=== PATIENT | female | born 1945 | race Caucasian/White ===

== ENCOUNTER 2021-02-11 02:48 | Inpatient (IN) | payer MEDICARE, OTHER ==
[~2021-02-11] VITALS: Ht 152.4 cm; Wt 77.8 kg
[2021-02-11] MEDS ORDERED: SODIUM CHLORIDE 0.9% 1,000 ML IV ONE (05:15)
[2021-02-11] MEDS ORDERED: METOCLOPRAMIDE HCL 5MG/ml INJ 2ml VIAL IV ONE (05:15)
[2021-02-11] MEDS ORDERED: ACETAMINOPHEN 500 MG TAB PO ONE (05:15)
[2021-02-11] MEDS ORDERED: diphenhdrAMINE HCL 50 MG/1 ML VL IV ONE (05:15)
[2021-02-11 05:44] LABS: Basophils # (auto) 0.1 10 ^3/uL (0-0.2); Basophils % (auto) 0.7 % (0.0-2.0); Eosinophils # (auto) 0.2 10 ^3/uL (0-0.8); Hematocrit 36.3 % (36.0-46.0); Hemoglobin 12.2 g/dL (12.2-16.2); Lymphocytes # (auto) 2.1 10 ^3/uL (0.4-5.4); Lymphocytes % (auto) 13.5 % (10.0-50.0); Mean Corpuscular Hemoglobin 32.6 pg (28.0-32.0); Mean Corpuscular Hgb Conc. 33.6 g/dL (32.0-36.0); Mean Corpuscular Volume 96.9 fL (80.0-100.0); Monocytes # (auto) 1.2 10 ^3/uL (0-1.3); Monocytes % (auto) 7.5 % (0.0-12.0); Neutrophils # (auto) 12.2 10 ^3/uL (1.6-8.6); Neutrophils % (auto) 77.3 % (37.0-80.0); Nucleated Red Blood Cells % 0.1 %; Red Blood Cells 3.75 10^6/uL (4.0-5.20); Red Cell Distribution Width 14.8 % (11.8-14.3); White Blood Cell 15.7 10^3/uL (4.4-10.8)
[2021-02-11 05:47] LABS: Albumin 1.9 g/dL (3.4-5.0); Anion Gap 7 (5-15); Blood Urea Nitrogen 21 mg/dL (7-18); Calcium 6.2 mg/dL (8.5-10.1); Carbon Dioxide 19 mmol/L (21-32); Chloride 122 mmol/L (98-107); Glucose 100 mg/dL (74-106); Magnesium 1.4 mg/dL (1.6-2.6); Sodium 148 mmol/L (136-145)
[2021-02-11 05:48] LABS: INR 1.04 (0.9-1.15)
[2021-02-11 05:53] LABS: Alanine Aminotransferase 41 U/L (13-56); Alkaline Phosphatase 81 U/L (45-117); Aspartate Aminotransferase 27 U/L (15-37); BUN/Creatinine Ratio 27.6; Bilirubin, Total 0.3 mg/dL (0.2-1.0); GFR African American 95 mL/min; GFR Non-African American 79 mL/min; Total Protein 5.2 g/dL (6.4-8.2)
[2021-02-11] MEDS ORDERED: MORPHINE SULF INJ 2 MG/ML SYRINGE 1ML IV ONE (06:15)
[2021-02-11 06:22] LABS: Potassium 2.7 mmol/L (3.5-5.1)
[2021-02-11] MEDS ORDERED: LORazepam 2MG/ML-1ML VIAL IV ONE (06:30)
[2021-02-11] MEDS ORDERED: IOHEXOL 300 MG/ML 100ML BOTTLE IJ ONE (06:35)
[2021-02-11] MEDS: POTASSIUM CHL 20MEQ/100ML 100 ML IV SCH ×2 (07:44→09:45)
[2021-02-11] MEDS ORDERED: MORPHINE SULF INJ 2 MG/ML SYRINGE 1ML IV PRN (10:30)
[2021-02-11] MEDS ORDERED: LABETALOL HCL 5 MG/ML 4ML SYRINGE IV ONE (10:30)
[2021-02-11] MEDS ORDERED: LACTATED RINGER'S 1,000 ML IV ONE (10:30)
[2021-02-11] MEDS ORDERED: ONDANSETRON HCL 4 MG/2 ML VIAL IV PRN (10:30)
[2021-02-11] MEDS ORDERED: NITROGLYCERIN 0.4 MG SL TAB SL PRN (10:30)
[2021-02-11] MEDS ORDERED: MORPHINE SULF INJ 2 MG/ML SYRINGE 1ML ONE (10:41)
[2021-02-11] MEDS: MORPHINE SULF INJ 2 MG/ML SYRINGE 1ML IV PRN (11:06)
[2021-02-11] MEDS ORDERED: CHLO25TA2 PO (11:08)
[2021-02-11] MEDS ORDERED: BUPR150T18 PO (11:08)
[2021-02-11] MEDS ORDERED: AMLO-496 PO (11:08)
[2021-02-11] MEDS ORDERED: ATEN50TA PO (11:08)
[2021-02-11] MEDS ORDERED: ALLO100T PO (11:08)
[2021-02-11] MEDS ORDERED: FAMO-12 PO (11:08)
[2021-02-11] MEDS: PANTOPRAZOLE 40 MG/10 ML VIAL INJ IV SCH ×2 (11:23→22:42)
[2021-02-11 11:49] LABS: Amylase 28 U/L (25-115); Lipase 118 U/L (73-393)
[2021-02-11] MEDS ORDERED: SUCRALFATE 1 GM/10 ML ORAL SUSP PO ONE (12:15)
[2021-02-11] MEDS: levoFLOXacin 500MG 100 ML IV SCH (12:19)
[2021-02-11] MEDS: metroNIDAZOLE 500MG/100ML 100 ML IV SCH ×2 (14:00→22:00)
[2021-02-11] MEDS: SOD CHL 0.45% WITH 20MEQ KCL 1,000 ML IV SCH ×2 (14:30→18:30)
[2021-02-11] MEDS ORDERED: ACETAMINOPHEN 325 MG TAB PO PRN (20:30)
[2021-02-11] MEDS ORDERED: HYDROcodone-ACET 5/325MG TAB PO PRN (20:30)
[2021-02-11 20:50] VITALS: BP 161/79
[2021-02-11 22:00] VITALS: BP 161/79
[2021-02-12] MEDS: SOD CHL 0.45% WITH 20MEQ KCL 1,000 ML IV SCH ×2 (02:26→04:30)
[2021-02-12] MEDS: LORazepam 2MG/ML-1ML VIAL IV PRN ×3 (04:27→23:44)
[2021-02-12 04:51] VITALS: BP 159/77
[2021-02-12] MEDS: LABETALOL HCL 5 MG/ML 4ML SYRINGE IV PRN (05:17)
[2021-02-12 05:20] LABS: Basophils # (auto) 0 10 ^3/uL (0-0.2); Basophils % (auto) 0.4 % (0.0-2.0); Eosinophils # (auto) 0.2 10 ^3/uL (0-0.8); Eosinophils % (auto) 1.7 % (0.0-7.0); Hematocrit 35.7 % (36.0-46.0); Hemoglobin 12.3 g/dL (12.2-16.2); Lymphocytes # (auto) 1.8 10 ^3/uL (0.4-5.4); Lymphocytes % (auto) 13.6 % (10.0-50.0); Mean Corpuscular Hemoglobin 33.2 pg (28.0-32.0); Mean Corpuscular Hgb Conc. 34.3 g/dL (32.0-36.0); Monocytes # (auto) 0.8 10 ^3/uL (0-1.3); Monocytes % (auto) 6.3 % (0.0-12.0); Neutrophils # (auto) 10.3 10 ^3/uL (1.6-8.6); Red Blood Cells 3.69 10^6/uL (4.0-5.20); Red Cell Distribution Width 15.2 % (11.8-14.3); White Blood Cell 13.2 10^3/uL (4.4-10.8)
[2021-02-12] MEDS: metroNIDAZOLE 500MG/100ML 100 ML IV SCH (05:35)
[2021-02-12 05:53] LABS: Albumin 2.6 g/dL (3.4-5.0); BUN/Creatinine Ratio 13.5; Bilirubin, Total 0.7 mg/dL (0.2-1.0); Calcium 8.2 mg/dL (8.5-10.1); Total Protein 6.8 g/dL (6.4-8.2)
[2021-02-12 08:10] VITALS: BP 148/63
[2021-02-12] MEDS ORDERED: SIMETHICONE 40 MG/0.6 ML ORAL DROP ONE (08:30)
[2021-02-12] MEDS ORDERED: LIDOCAINE VISCOUS 2% 15ML UD ONE (08:41)
[2021-02-12] MEDS ORDERED: diphenhdrAMINE HCL 50 MG/1 ML VL ONE (08:42)
[2021-02-12 08:58] VITALS: BP 148/63
[2021-02-12] MEDS ORDERED: ENOXAPARIN SOD 40 MG/0.4 ML SYRINGE SC SCH (10:00)
[2021-02-12] MEDS ORDERED: HYDROcodone-ACET 5/325MG TAB PO PRN (10:15)
[2021-02-12] MEDS: levoFLOXacin 500MG 100 ML IV SCH (10:40)
[2021-02-12] MEDS: PANTOPRAZOLE 40 MG/10 ML VIAL INJ IV SCH ×2 (10:40→21:50)
[2021-02-12 11:46] LABS: Urine Bacteria FEW /hpf (None Seen); Urine Blood TRACE /uL (Negative); Urine Mucus FEW (None Seen); Urine Specific Gravity 1.013 (1.001-1.035); Urine WBC 65 /hpf (0 - 5)
[2021-02-12 13:00] VITALS: BP 158/76
[2021-02-12] MEDS: fentaNYL CITRATE 100 MCG/2 ML VL ONE ×2 (14:12→14:15)
[2021-02-12] MEDS: MIDAZOLAM HCL 5 MG/ML-1ML VIAL ONE ×2 (14:12→14:15)
[2021-02-12 16:33] VITALS: BP 161/84
[2021-02-12] MEDS: SUCRALFATE 1 GM/10 ML ORAL SUSP PO SCH ×2 (18:17→21:51)
[2021-02-12] MEDS: metroNIDAZOLE 500 MG TAB PO SCH (21:51)
[2021-02-12 22:00] VITALS: BP 151/85
[2021-02-13] VITALS (7 sets, daily range): BP systolic 152–163; BP diastolic 70–82
[2021-02-13] MEDS: LABETALOL HCL 5 MG/ML 4ML SYRINGE IV PRN (04:44)
[2021-02-13] MEDS: metroNIDAZOLE 500 MG TAB PO SCH ×3 (06:06→22:19)
[2021-02-13] MEDS: SUCRALFATE 1 GM/10 ML ORAL SUSP PO SCH ×4 (06:06→22:19)
[2021-02-13 07:22] LABS: Basophils # (auto) 0 10 ^3/uL (0-0.2); Basophils % (auto) 0.3 % (0.0-2.0); Eosinophils # (auto) 0.2 10 ^3/uL (0-0.8); Eosinophils % (auto) 1.5 % (0.0-7.0); Hematocrit 34.2 % (36.0-46.0); Hemoglobin 11.6 g/dL (12.2-16.2); Lymphocytes # (auto) 1.9 10 ^3/uL (0.4-5.4); Lymphocytes % (auto) 14.9 % (10.0-50.0); Mean Corpuscular Hemoglobin 33.2 pg (28.0-32.0); Mean Corpuscular Hgb Conc. 33.8 g/dL (32.0-36.0); Mean Corpuscular Volume 98.2 fL (80.0-100.0); Monocytes # (auto) 0.9 10 ^3/uL (0-1.3); Monocytes % (auto) 7.2 % (0.0-12.0); Neutrophils # (auto) 9.8 10 ^3/uL (1.6-8.6); Neutrophils % (auto) 76.1 % (37.0-80.0); Red Blood Cells 3.49 10^6/uL (4.0-5.20); White Blood Cell 12.9 10^3/uL (4.4-10.8)
[2021-02-13 07:29] LABS: BUN/Creatinine Ratio 9.2; Calcium 8.4 mg/dL (8.5-10.1); Potassium 3.3 mmol/L (3.5-5.1)
[2021-02-13] MEDS ORDERED: LABETALOL HCL 5 MG/ML 4ML SYRINGE IV PRN (10:00)
[2021-02-13] MEDS: FLORASTOR (S. BOULARDII) 250 MG CAP PO SCH (10:55)
[2021-02-13] MEDS: PANTOPRAZOLE 40 MG/10 ML VIAL INJ IV SCH ×2 (10:55→22:19)
[2021-02-13] MEDS: SOD CHL 0.9%/ KCL 20MEQ 1,000 ML IV SCH (11:39)
[2021-02-14] MEDS: MORPHINE SULF INJ 2 MG/ML SYRINGE 1ML IV PRN (00:45)
[2021-02-14] MEDS: SOD CHL 0.9%/ KCL 20MEQ 1,000 ML IV SCH ×2 (00:46→12:40)
[2021-02-14 05:00] VITALS: BP 173/74
[2021-02-14 05:31] LABS: Basophils # (auto) 0 10 ^3/uL (0-0.2); Basophils % (auto) 0.5 % (0.0-2.0); Eosinophils # (auto) 0.3 10 ^3/uL (0-0.8); Eosinophils % (auto) 2.8 % (0.0-7.0); Hematocrit 34.6 % (36.0-46.0); Hemoglobin 11.6 g/dL (12.2-16.2); Lymphocytes # (auto) 2.3 10 ^3/uL (0.4-5.4); Mean Corpuscular Hemoglobin 32.6 pg (28.0-32.0); Mean Corpuscular Hgb Conc. 33.5 g/dL (32.0-36.0); Mean Corpuscular Volume 97.2 fL (80.0-100.0); Monocytes # (auto) 0.9 10 ^3/uL (0-1.3); Monocytes % (auto) 8.9 % (0.0-12.0); Neutrophils # (auto) 6.5 10 ^3/uL (1.6-8.6); Neutrophils % (auto) 64.8 % (37.0-80.0); Nucleated Red Blood Cells % 0.3 %; Red Blood Cells 3.57 10^6/uL (4.0-5.20); Red Cell Distribution Width 15.2 % (11.8-14.3)
[2021-02-14 05:59] LABS: BUN/Creatinine Ratio 8.5; Calcium 8.2 mg/dL (8.5-10.1); Potassium 3.9 mmol/L (3.5-5.1)
[2021-02-14] MEDS: SUCRALFATE 1 GM/10 ML ORAL SUSP PO SCH ×2 (06:08→11:27)
[2021-02-14] MEDS: metroNIDAZOLE 500 MG TAB PO SCH (06:08)
[2021-02-14 08:00] VITALS: BP 158/87
[2021-02-14 08:56] VITALS: BP 158/87
[2021-02-14] MEDS: PANTOPRAZOLE 40 MG/10 ML VIAL INJ IV SCH (10:06)
[2021-02-14] MEDS: FLORASTOR (S. BOULARDII) 250 MG CAP PO SCH (10:06)
[2021-02-14 12:33] VITALS: BP 162/78
== END 2021-02-14 14:15 | disposition home or self-care (01) | DRG 872 ==
LOC: EDBD 02:48 → ER 02:48 → TELE 10:23 → TELE-CENTR 20:50
PROVIDERS: ADMIT Nurse Practitioner Acute Care; ATTEND Internal Medicine
PROC: 0DB68ZX Excision of Stomach, Via Natural or Artificial Opening Endoscopic, Diagnostic (ICD-10-PCS; 2021-02-12)
PROC: 0DB98ZX Excision of Duodenum, Via Natural or Artificial Opening Endoscopic, Diagnostic (ICD-10-PCS; principal; 2021-02-12 14:05)
DX: A41.9 Sepsis, unspecified organism (principal); A04.72 Enterocolitis due to Clostridium difficile, not specified as recurrent; E44.0 Moderate protein-calorie malnutrition; E86.0 Dehydration; E87.6 Hypokalemia; I10 Essential (primary) hypertension; E11.9 Type 2 diabetes mellitus without complications; E78.5 Hyperlipidemia, unspecified; K25.9 Gastric ulcer, unspecified as acute or chronic, without hemorrhage or perforation; K29.80 Duodenitis without bleeding; K29.90 Gastroduodenitis, unspecified, without bleeding; K57.30 Diverticulosis of large intestine without perforation or abscess without bleeding; M10.9 Gout, unspecified; Z20.822 Contact with and (suspected) exposure to COVID-19; K21.9 Gastro-esophageal reflux disease without esophagitis; Z88.0 Allergy status to penicillin; Z68.33 Body mass index [BMI] 33.0-33.9, adult; Z90.49 Acquired absence of other specified parts of digestive tract
CPT/HCPCS: 36415; 71045; 74177; 76705; 80048; 80053; 81001; 82150; 82728; 83605; 83615; 83690; 83735; 83880; 84484; 85025; 85610; 87040; 87045; 87426; 87427; 87493; 93005; 93306; 96365; 96366; 96368; 96375; 96376; 97163; C9113; G0378; J1956; J2250; J3480; J3490

== ENCOUNTER 2021-08-15 21:22 | Inpatient (IN) | payer MEDICARE ==
[~2021-08-15] VITALS: Ht 154.9 cm; Wt 77.2 kg
[~2021-08-15 21:22] MED LIST: ALLO100T PO; AMLO-496 PO; ATEN50TA PO; BUPR150T18 PO; CHLO25TA2 PO; FAMO-12 PO
[2021-08-15] MEDS ORDERED: ONDANSETRON HCL 4 MG/2 ML VIAL IV ONE (21:45)
[2021-08-15] MEDS ORDERED: SODIUM CHLORIDE 0.9% 1,000 ML IV ONE (22:00)
[2021-08-15] MEDS ORDERED: fentaNYL CITRATE 100 MCG/2 ML VL IV ONE (22:15)
[2021-08-15 23:26] LABS: Eosinophils # (auto) 0 10 ^3/uL (0-0.8); Monocytes # (auto) 0.5 10 ^3/uL (0-1.3); Neutrophils # (auto) 7.8 10 ^3/uL (1.6-8.6)
[2021-08-15 23:32] LABS: Basophils # (auto) 0 10 ^3/uL (0-0.2); Basophils % (auto) 0.4 % (0.0-2.0); Eosinophils % (auto) 0.3 % (0.0-7.0); Hematocrit 38.8 % (36.0-46.0); Hemoglobin 13.2 g/dL (12.2-16.2); Lymphocytes # (auto) 0.7 10 ^3/uL (0.4-5.4); Lymphocytes % (auto) 8.2 % (10.0-50.0); Monocytes % (auto) 5.2 % (0.0-12.0); Neutrophils % (auto) 85.9 % (37.0-80.0); Red Blood Cells 3.99 10^6/uL (4.0-5.20); White Blood Cell 9.1 10^3/uL (4.4-10.8)
[2021-08-15 23:40] LABS: INR 1.08 (0.9-1.15); Partial Thromboplastin Time 29.7 sec (23.6-33.0)
[2021-08-15 23:48] LABS: Albumin 3.4 g/dL (3.4-5.0); Calcium 9.1 mg/dL (8.5-10.1); Potassium 4.2 mmol/L (3.5-5.1)
[2021-08-15 23:55] LABS: BUN/Creatinine Ratio 16.8; Bilirubin, Total 0.3 mg/dL (0.2-1.0); Total Protein 7.7 g/dL (6.4-8.2)
[2021-08-16] MEDS ORDERED: fentaNYL CITRATE 100 MCG/2 ML VL IV ONE (01:15)
[2021-08-16] MEDS ORDERED: ONDANSETRON HCL 4 MG/2 ML VIAL IV ONE (01:15)
[2021-08-16 01:38] LABS: Urine Bacteria FEW /hpf (None Seen); Urine Blood Negative /uL (Negative); Urine Mucus FEW (None Seen); Urine Specific Gravity 1.009 (1.001-1.035); Urine WBC 9 /hpf (0 - 5)
[2021-08-16] MEDS ORDERED: HYDROcodone-ACET 5/325MG TAB PO PRN (03:00)
[2021-08-16] MEDS ORDERED: DEXTROSE (50%) 50ML SYRG IV PRN (03:00)
[2021-08-16] MEDS ORDERED: ACETAMINOPHEN 325 MG TAB PO PRN (03:00)
[2021-08-16] MEDS ORDERED: SODIUM CHLORIDE 0.9% 1,000 ML IV SCH (03:00)
[2021-08-16] MEDS ORDERED: ASPirin 325 MG TAB PO ONE (03:15)
[2021-08-16] MEDS ORDERED: levoFLOXacin 500MG 100 ML IV ONE (04:00)
[2021-08-16] MEDS ORDERED: MORPHINE SULFATE INJECTION 2 MG/ML SYRG IV PRN (04:15)
[2021-08-16] MEDS: MORPHINE SULFATE 4 MG/ML SYR/VIAL IV PRN (04:25)
[2021-08-16] MEDS ORDERED: diphenhdrAMINE HCL 50 MG/1 ML VL IV ONE (04:45)
[2021-08-16] MEDS: ACCU-CHEK COMFORT CURVE STRIP VI SCH ×3 (06:12→18:00)
[2021-08-16] MEDS: InsuLIN REG 1unit/0.01ml Soln (100units/ml) SC SCH ×3 (06:29→18:00)
[2021-08-16 06:43] LABS: Basophils # (auto) 0.1 10 ^3/uL (0-0.2); Basophils % (auto) 0.6 % (0.0-2.0); Eosinophils # (auto) 0 10 ^3/uL (0-0.8); Eosinophils % (auto) 0.3 % (0.0-7.0); Hematocrit 36.6 % (36.0-46.0); Hemoglobin 12.1 g/dL (12.2-16.2); Lymphocytes # (auto) 1.5 10 ^3/uL (0.4-5.4); Lymphocytes % (auto) 15.5 % (10.0-50.0); Mean Corpuscular Hgb Conc. 33.1 g/dL (32.0-36.0); Mean Corpuscular Volume 96.6 fL (80.0-100.0); Monocytes # (auto) 0.7 10 ^3/uL (0-1.3); Neutrophils # (auto) 7.2 10 ^3/uL (1.6-8.6); Neutrophils % (auto) 76.6 % (37.0-80.0); Red Blood Cells 3.79 10^6/uL (4.0-5.20); Red Cell Distribution Width 13.9 % (11.8-14.3); White Blood Cell 9.4 10^3/uL (4.4-10.8)
[2021-08-16 06:57] LABS: Albumin 3.1 g/dL (3.4-5.0); Calcium 8.9 mg/dL (8.5-10.1); Potassium 4.1 mmol/L (3.5-5.1)
[2021-08-16 07:08] LABS: BUN/Creatinine Ratio 15.9; Bilirubin, Total 0.4 mg/dL (0.2-1.0); Total Protein 7.2 g/dL (6.4-8.2)
[2021-08-16] MEDS: ONDANSETRON HCL 4 MG/2 ML VIAL IV PRN (08:55)
[2021-08-16] MEDS: NITROGLYCERIN 0.4 MG SL TAB SL PRN ×2 (08:55→09:06)
[2021-08-16] MEDS: SODIUM CHLORIDE 0.9% 1,000 ML IV SCH ×2 (11:15→21:15)
[2021-08-16 13:00] VITALS: BP 163/71
[2021-08-16] MEDS: amLODIPine BESYLATE 5 MG TAB PO SCH (13:01)
[2021-08-16] MEDS: ASPirin 81 mg TAB PO SCH (13:01)
[2021-08-16] MEDS: CARVEDILOL 12.5 MG TAB PO SCH ×3 (13:02→21:00)
[2021-08-16] MEDS: FAMOTIDINE (10MG/ML) 2ML VL IV SCH ×2 (13:02→22:00)
[2021-08-16 17:00] VITALS: BP 147/57
[2021-08-16] MEDS ORDERED: CLINIMIX PER PHARMACY 0 ML IV SCH (17:15)
[2021-08-16 22:00] VITALS: BP 165/75
[2021-08-16 23:00] VITALS: BP 110/61
[2021-08-17] MEDS ORDERED: DEXTROSE (50%) 50ML SYRG IV SCH
[2021-08-17] MEDS: AMINO ACID INFUSION IN D10W 1,000 ML IV SCH ×2 (00:12→20:24)
[2021-08-17] MEDS: ACCU-CHEK COMFORT CURVE STRIP VI SCH ×7 (00:27→17:37)
[2021-08-17] MEDS: hydrALAZINE HCL 20 MG/ML VL IV PRN (00:42)
[2021-08-17] MEDS: InsuLIN REG 1unit/0.01ml Soln (100units/ml) SC SCH ×8 (00:58→23:11)
[2021-08-17] MEDS: ONDANSETRON HCL 4 MG/2 ML VIAL IV PRN (02:04)
[2021-08-17 05:00] VITALS: BP 132/45
[2021-08-17 06:00] VITALS: BP 143/45
[2021-08-17] MEDS: SODIUM CHLORIDE 0.9% 1,000 ML IV SCH ×3 (07:29→22:00)
[2021-08-17 09:25] LABS: Basophils # (auto) 0.1 10 ^3/uL (0-0.2); Basophils % (auto) 1.3 % (0.0-2.0); Eosinophils # (auto) 0.2 10 ^3/uL (0-0.8); Eosinophils % (auto) 1.7 % (0.0-7.0); Hematocrit 35.2 % (36.0-46.0); Hemoglobin 11.4 g/dL (12.2-16.2); Lymphocytes # (auto) 2.1 10 ^3/uL (0.4-5.4); Lymphocytes % (auto) 21.8 % (10.0-50.0); Mean Corpuscular Hgb Conc. 32.5 g/dL (32.0-36.0); Mean Corpuscular Volume 98.4 fL (80.0-100.0); Monocytes # (auto) 0.7 10 ^3/uL (0-1.3); Monocytes % (auto) 6.9 % (0.0-12.0); Neutrophils # (auto) 6.6 10 ^3/uL (1.6-8.6); Neutrophils % (auto) 68.3 % (37.0-80.0); Nucleated Red Blood Cells % 0.1 %; Red Blood Cells 3.58 10^6/uL (4.0-5.20); Red Cell Distribution Width 14.2 % (11.8-14.3); White Blood Cell 9.6 10^3/uL (4.4-10.8)
[2021-08-17 09:34] LABS: Potassium 4.2 mmol/L (3.5-5.1)
[2021-08-17 09:43] LABS: Albumin 2.9 g/dL (3.4-5.0); BUN/Creatinine Ratio 17.5; Bilirubin, Total 0.5 mg/dL (0.2-1.0); Phosphorus 2.9 mg/dL (2.5-4.90); Pre Albumin 21.7 mg/dL (20.0-40.0); Total Protein 6.6 g/dL (6.4-8.2)
[2021-08-17] MEDS: FAMOTIDINE (10MG/ML) 2ML VL IV SCH ×2 (10:10→22:55)
[2021-08-17] MEDS: levoFLOXacin 250MG 50 ML IV SCH (10:11)
[2021-08-17] MEDS: ASPirin 81 mg TAB PO SCH (10:11)
[2021-08-17] MEDS: amLODIPine BESYLATE 5 MG TAB PO SCH (10:11)
[2021-08-17 13:00] VITALS: BP 158/66
[2021-08-17 16:00] VITALS: BP 149/55
[2021-08-17 22:00] VITALS: BP 153/54
[2021-08-17] MEDS: CARVEDILOL 12.5 MG TAB PO SCH (22:52)
[2021-08-18] MEDS: SODIUM CHLORIDE 0.9% 1,000 ML IV SCH ×2 (03:15→22:47)
[2021-08-18] MEDS: CARVEDILOL 12.5 MG TAB PO SCH ×2 (03:34→13:45)
[2021-08-18] MEDS: ACCU-CHEK COMFORT CURVE STRIP VI SCH ×4 (03:37→19:11)
[2021-08-18] MEDS: InsuLIN REG 1unit/0.01ml Soln (100units/ml) SC SCH ×3 (06:00→19:08)
[2021-08-18] MEDS ORDERED: HALOPERIDOL LACTATE 5 MG/ML INJ VIAL IM ONE (06:30)
[2021-08-18] MEDS: ONDANSETRON HCL 4 MG/2 ML VIAL IV PRN (10:13)
[2021-08-18] MEDS: ASPirin 81 mg TAB PO SCH (10:16)
[2021-08-18] MEDS: MORPHINE SULFATE 4 MG/ML SYR/VIAL IV PRN (10:24)
[2021-08-18 10:30] VITALS: BP 160/98
[2021-08-18] MEDS ORDERED: SUCCINYLCHOLINE CHLORIDE 20 MG/ML 10ML VIAL IV ONE (10:45)
[2021-08-18] MEDS ORDERED: ROCURONIUM 10MG/ML 10ML VIAL IV ONE (10:46)
[2021-08-18] MEDS ORDERED: ETOMIDATE (2MG/ML) 20ML VIAL IV ONE (10:46)
[2021-08-18] MEDS: amLODIPine BESYLATE 5 MG TAB PO SCH (10:46)
[2021-08-18 11:30] LABS: Potassium 4.3 mmol/L (3.5-5.1)
[2021-08-18 11:38] LABS: Albumin 3.4 g/dL (3.4-5.0); BUN/Creatinine Ratio 17.3; Bilirubin, Total 0.6 mg/dL (0.2-1.0); Calcium 9.4 mg/dL (8.5-10.1); Phosphorus 3.1 mg/dL (2.5-4.90); Total Protein 6.7 g/dL (6.4-8.2)
[2021-08-18] MEDS ORDERED: LEVO500T31 PO (12:50)
[2021-08-18 13:30] VITALS: BP 150/90
[2021-08-18] MEDS: levoFLOXacin 250MG 50 ML IV SCH (13:44)
[2021-08-18] MEDS: FAMOTIDINE (10MG/ML) 2ML VL IV SCH ×2 (13:44→21:51)
[2021-08-18 15:56] VITALS: BP 150/90
[2021-08-18 21:30] VITALS: BP 168/69
[2021-08-18] MEDS: AMINO ACID INFUSION IN D10W 1,000 ML IV SCH (21:51)
[2021-08-18] MEDS: hydrALAZINE HCL 20 MG/ML VL IV PRN (21:52)
[2021-08-19] MEDS: ACCU-CHEK COMFORT CURVE STRIP VI SCH ×2 (00:25→06:12)
[2021-08-19 04:25] VITALS: BP 163/78
[2021-08-19] MEDS: hydrALAZINE HCL 20 MG/ML VL IV PRN (04:47)
[2021-08-19] MEDS: InsuLIN REG 1unit/0.01ml Soln (100units/ml) SC SCH ×2 (06:14)
[2021-08-19 08:19] LABS: Potassium 4.3 mmol/L (3.5-5.1)
[2021-08-19 08:32] LABS: Albumin 3.4 g/dL (3.4-5.0); BUN/Creatinine Ratio 16.2; Bilirubin, Total 0.6 mg/dL (0.2-1.0); Calcium 9.6 mg/dL (8.5-10.1); Phosphorus 2.6 mg/dL (2.5-4.90); Total Protein 7.3 g/dL (6.4-8.2)
[2021-08-19 09:00] VITALS: BP 121/61
[2021-08-19] MEDS: ASPirin 81 mg TAB PO SCH (09:21)
[2021-08-19] MEDS: CARVEDILOL 12.5 MG TAB PO SCH (09:21)
[2021-08-19] MEDS: amLODIPine BESYLATE 5 MG TAB PO SCH (09:22)
[2021-08-19] MEDS: FAMOTIDINE (10MG/ML) 2ML VL IV SCH (09:23)
[2021-08-19] MEDS: levoFLOXacin 250MG 50 ML IV SCH (09:23)
== END 2021-08-19 12:57 | disposition home or self-care (01) | DRG 871 ==
LOC: EDBD 21:22 → ER 21:26 → TELE 08-16 04:04 → TELE-EAST 08-16 09:24
PROVIDERS: ADMIT Nurse Practitioner Family; ATTEND Internal Medicine
DX: A41.9 Sepsis, unspecified organism (principal); K85.90 Acute pancreatitis without necrosis or infection, unspecified; N17.9 Acute kidney failure, unspecified; N39.0 Urinary tract infection, site not specified; Z20.822 Contact with and (suspected) exposure to COVID-19; E11.65 Type 2 diabetes mellitus with hyperglycemia; E78.5 Hyperlipidemia, unspecified; F03.90 Unspecified dementia, unspecified severity, without behavioral disturbance, psychotic disturbance, mood disturbance, and anxiety; K76.0 Fatty (change of) liver, not elsewhere classified; I10 Essential (primary) hypertension; K21.9 Gastro-esophageal reflux disease without esophagitis; M10.9 Gout, unspecified; R77.8 Other specified abnormalities of plasma proteins; R79.89 Other specified abnormal findings of blood chemistry; Z80.3 Family history of malignant neoplasm of breast; Z83.3 Family history of diabetes mellitus; Z82.49 Family history of ischemic heart disease and other diseases of the circulatory system; Z88.0 Allergy status to penicillin
CPT/HCPCS: 32555; 36415; 71045; 74176; 76705; 80053; 80061; 81001; 82040; 82150; 82962; 83036; 83690; 83735; 83880; 84100; 84484; 85025; 85610; 85730; 87086; 87426; 93005; 96361; 96365; 96375; 99291; G0378; J0330; J1815; J1956; J2405; J3490

== ENCOUNTER 2022-06-16 10:59 | Emergency (ER) | payer MEDICARE ==
[~2022-06-16] VITALS: Ht 157.5 cm; Wt 70.0 kg
[~2022-06-16 10:59] MED LIST changes: +LEVO500T31 PO
[2022-06-16 11:30] VITALS: BP 142/69
[2022-06-16 15:26] LABS: Basophils # (auto) 0.1 10 ^3/uL (0-0.2); Basophils % (auto) 0.8 % (0.0-2.0); Eosinophils # (auto) 0.2 10 ^3/uL (0-0.8); Eosinophils % (auto) 1.8 % (0.0-7.0); Hemoglobin 14.4 g/dL (12.2-16.2); Lymphocytes # (auto) 1.5 10 ^3/uL (0.4-5.4); Lymphocytes % (auto) 16.1 % (10.0-50.0); Mean Corpuscular Hemoglobin 31.6 pg (28.0-32.0); Mean Corpuscular Hgb Conc. 33.5 g/dL (32.0-36.0); Mean Corpuscular Volume 94.5 fL (80.0-100.0); Monocytes # (auto) 0.6 10 ^3/uL (0-1.3); Monocytes % (auto) 6.8 % (0.0-12.0); Neutrophils # (auto) 6.9 10 ^3/uL (1.6-8.6); Neutrophils % (auto) 74.5 % (37.0-80.0); Red Blood Cells 4.54 10^6/uL (4.0-5.20); Red Cell Distribution Width 13.8 % (11.8-14.3); White Blood Cell 9.3 10^3/uL (4.4-10.8)
[2022-06-16 15:43] LABS: INR 1.03 (0.9-1.15); Partial Thromboplastin Time 29.6 sec (24.6-33.4)
[2022-06-16 15:45] LABS: Calcium 9.4 mg/dL (8.5-10.1)
[2022-06-16 15:54] LABS: BUN/Creatinine Ratio 22.8; Bilirubin, Total 0.7 mg/dL (0.2-1.0); Total Protein 7.7 g/dL (6.4-8.2)
[2022-06-16 16:07] LABS: Urine Bacteria FEW /hpf (None Seen); Urine Blood Negative /uL (Negative); Urine Hyaline Cast FEW /lpf (0 - 2); Urine Mucus FEW (None Seen); Urine Specific Gravity 1.014 (1.001-1.035); Urine WBC 84 /hpf (0 - 5)
[2022-06-16] MEDS ORDERED: levoFLOXacin 500 MG TAB PO ONE (16:45)
[2022-06-16] MEDS ORDERED: NITR-87 PO (16:54)
== END 2022-06-16 17:27 | disposition home or self-care (01) ==
LOC: ER 10:59
DX: S06.9X9A Unspecified intracranial injury with loss of consciousness of unspecified duration, initial encounter (principal); M17.9 Osteoarthritis of knee, unspecified; N39.0 Urinary tract infection, site not specified; E11.9 Type 2 diabetes mellitus without complications; K21.9 Gastro-esophageal reflux disease without esophagitis; E78.5 Hyperlipidemia, unspecified; I10 Essential (primary) hypertension; Z88.0 Allergy status to penicillin; Z79.899 Other long term (current) drug therapy; W19.XXXA Unspecified fall, initial encounter; Y93.89 Activity, other specified; Y92.89 Other specified places as the place of occurrence of the external cause; Y99.8 Other external cause status
CPT/HCPCS: 12011; 36415; 70450; 70486; 71045; 72192; 73700; 80053; 81001; 84484; 85025; 85610; 85730